=== PATIENT | female | born 1965 | race Caucasian/White ===

== ENCOUNTER → 2016-04-06 | Outpatient (CLI) | payer OTHER ==
[~2016-04-06] MED LIST: ESTRACE0.5 MG PO; NORCO 325 MG-51 TAB PO; VITAMIN D1000 IU PO; ZOVIRAX800 MG PO
== END ==
LOC: ZLAB.FHCC 12:20 → EDBD 12:20
DX: Z01.89 Encounter for other specified special examinations (principal)

== ENCOUNTER → 2016-05-04 | Outpatient (CLI) | payer OTHER | LOC: EDBD 11:42 → ZLAB.FHCC 11:42 | DX: Z01.89 Encounter for other specified special examinations (principal) ==

== ENCOUNTER → 2016-06-30 | Outpatient (CLI) | payer OTHER ==
[2016-06-30 13:16] LABS: ADJUSTED CALCIUM 9.4 mg/dL (8.4-10.2); ALBUMIN 4.8 gm/dL (3.5-5.0); BILIRUBIN,TOTAL 1.6 mg/dL (0.0-1.0); CREATININE, serum 0.61 mg/dL (0.52-1.25); POTASSIUM 3.8 mmol/L (3.4-5.0); TOTAL PROTEIN 8.5 gm/dL (6.4-8.2)
== END ==
LOC: ZLAB.FHCC 08:37 → COL.LAB 08:37
DX: Z02.89 Encounter for other administrative examinations (principal)

== ENCOUNTER → 2016-07-20 | Outpatient (CLI) | payer OTHER | LOC: COL.LAB 08:46 | DX: R74.8 Abnormal levels of other serum enzymes (principal) ==

== ENCOUNTER 2016-09-06 14:14 | Emergency (ER) | payer OTHER ==
[~2016-09-06] VITALS: Ht 162.6 cm; Wt 84.5 kg
[~2016-09-06 14:14] MED LIST changes: -NORCO 325 MG-51 TAB PO; -VITAMIN D1000 IU PO; -ZOVIRAX800 MG PO
[2016-09-06 14:16] VITALS: BP 131/65; PULSE 83; TEMP 97.7
[2016-09-06] MEDS ORDERED: VITAMIN D1000 IU PO (14:20)
[2016-09-06] MEDS ORDERED: NORCO 325 MG-51 TAB PO (15:56)
[2016-09-06] MEDS ORDERED: ZOVIRAX800 MG PO (15:56)
== END 2016-09-06 16:03 | disposition home or self-care (01) ==
LOC: COL.ER 14:14
DX: R23.8 Other skin changes (principal); Z90.710 Acquired absence of both cervix and uterus; Z98.890 Other specified postprocedural states

== ENCOUNTER → 2017-05-30 | Outpatient (CLI) | payer OTHER ==
[~2017-05-30] MED LIST changes: +NORCO 325 MG-51 TAB PO; +VITAMIN D1000 IU PO; +ZOVIRAX800 MG PO
== END ==
LOC: MC.RAD 11:00
DX: Z12.31 Encounter for screening mammogram for malignant neoplasm of breast (principal)